=== PATIENT | female | born 1950 ===

== ENCOUNTER 2020-05-31 08:08 | Outpatient (CLI) | payer OTHER | END 2020-05-31 08:23 | disposition home or self-care (01) | LOC: RAD 08:08 | PROVIDERS: ATTEND General Practice | DX: M54.2 Cervicalgia (principal) ==

== ENCOUNTER → 2020-07-09 | Outpatient (CLI) | payer OTHER | END | disposition home or self-care (01) | LOC: MRI 07:57 | PROVIDERS: ATTEND Emergency Medicine | DX: M47.892 Other spondylosis, cervical region (principal); M54.2 Cervicalgia; M54.12 Radiculopathy, cervical region | CPT/HCPCS: 72141 ==

== ENCOUNTER 2022-04-09 06:36 | Outpatient (CLI) | payer OTHER | END 2022-04-09 07:20 | disposition home or self-care (01) | LOC: TOM 06:36 | PROVIDERS: ATTEND Internal Medicine Cardiovascular Disease | DX: R91.1 Solitary pulmonary nodule (principal) ==

== ENCOUNTER 2024-10-06 11:23 | Outpatient (CLI) | payer OTHER | END 2024-10-06 11:40 | disposition home or self-care (01) | LOC: MRI 11:23 | PROVIDERS: ATTEND Orthopaedic Surgery | DX: M25.561 Pain in right knee (principal) | CPT/HCPCS: 73721 ==